=== PATIENT | female | born 1955 | race Caucasian/White ===

== ENCOUNTER 2016-10-01 12:47 | Emergency (ER) | payer OTHER ==
[~2016-10-01] VITALS: Ht 160 cm; Wt 56.8 kg
[2016-10-01] MEDS ORDERED: OXYB5 PO (12:58)
[2016-10-01] MEDS ORDERED: MUPIROCIN CALCIUM 2% 22 GM OINTMENT TP ONE (14:30)
[2016-10-01] MEDS ORDERED: PredniSONE 20 MG TABLET PO ONE (14:30)
[2016-10-01 15:40] VITALS: BP 122/78
== END 2016-10-01 15:49 | disposition home or self-care (01) ==
LOC: EMS 12:48
DX: L08.89 Other specified local infections of the skin and subcutaneous tissue (principal)
CPT/HCPCS: 99283; J7512

== ENCOUNTER 2017-07-18 13:10 | Emergency (ER) | payer OTHER ==
[~2017-07-18] VITALS: Ht 162.6 cm; Wt 72.7 kg
[~2017-07-18 13:10] MED LIST: OXYB5 PO
[2017-07-18 13:57] LABS: GLUCOSE,POINT OF CARE 75 MG/DL (70-110)
[2017-07-18 15:50] VITALS: BP 156/98
== END 2017-07-18 15:55 | disposition home or self-care (01) ==
LOC: EMS 13:11
DX: F10.129 Alcohol abuse with intoxication, unspecified (principal); F41.9 Anxiety disorder, unspecified; I10 Essential (primary) hypertension; E16.2 Hypoglycemia, unspecified
CPT/HCPCS: 36415; 82962; 99283; G0480

== ENCOUNTER 2020-11-17 12:18 | Emergency (ER) | payer OTHER ==
[~2020-11-17] VITALS: Ht 160 cm; Wt 59.1 kg
[2020-11-17] MEDS ORDERED: BUPIVACAINE HCL/PF 0.25% 10 ML VIAL ID ONE (13:00)
[2020-11-17] MEDS ORDERED: LIDOCAINE 1% 10 ML VIAL ID ONE (13:00)
[2020-11-17] MEDS ORDERED: IBUPROFEN 800 MG TABLET PO ONE (13:15)
[2020-11-17] MEDS ORDERED: PERTUSS(ACELL),DIPH,TET VAC/PF 0.5 ML SYRINGE IM. ONE (13:15)
[2020-11-17] MEDS ORDERED: CEPHALEXIN MONOHYDRATE 500 MG CAPSULE PO ONE (14:00)
[2020-11-17 14:06] VITALS: BP 144/83
[2020-11-17] MEDS ORDERED: POVIDONE-IODINE 10% 15 ML SOLUTION UD TP ONE (14:15)
== END 2020-11-17 14:18 | disposition home or self-care (01) ==
LOC: EMS 12:20
DX: S60.446A External constriction of right little finger, initial encounter (principal); L08.9 Local infection of the skin and subcutaneous tissue, unspecified; W49.01XA Hair causing external constriction, initial encounter; Y93.89 Activity, other specified; Y92.89 Other specified places as the place of occurrence of the external cause; Y99.8 Other external cause status
CPT/HCPCS: 64450; 90471; 90715; 99284; J3490 ×2

== ENCOUNTER 2024-09-28 12:30 | Emergency (ER) | payer OTHER ==
[~2024-09-28] VITALS: Ht 160 cm; Wt 75.0 kg
[~2024-09-28 12:30] MED LIST changes: -OXYB5 PO; +OXYB5TAB20 PO
[2024-09-28 12:48] VITALS: TEMP 98.2
[2024-09-28 16:55] LABS: HEMOGLOBIN 11.2 g/dL (12.0-16.0); LYMPHOCYTES # (AUTO) 1.1 K/uL (1.0-4.8); MEAN CORPUSCULAR HGB CONC 32.9 G/dL (31.0-37.0); MEAN CORPUSCULAR VOLUME 88 fL (80-100); MONOCYTES # (AUTO) 0.6 K/uL (0.1-1.0); MONOCYTES % (AUTO) 8.8 % (2.0-9.0); NEUTROPHILS # (AUTO) 4.5 K/uL (1.8-7.7); NEUTROPHILS % (AUTO) 71.2 % (40.0-70.0); PLATELET COUNT (AUTO) 332 K/uL (150-450); RED BLOOD CELL COUNT(AUTO) 3.85 MIL/uL (4.00-5.20); RED CELL DISTRIBUTION WIDTH 14.9 % (11.5-14.5); WHITE BLOOD COUNT (AUTO) 6.3 K/uL (4.5-11.0)
[2024-09-28 17:30] LABS: ANION GAP 5 mmol/L (8-16); CALCIUM, TOTAL 9.2 mg/dL (8.8-10.5); CARBON DIOXIDE 32 mmol/L (22-29); CHLORIDE 103 mmol/L (98-107); CREATININE 0.85 mg/dL (0.60-1.30); GLOMERULAR FILTR. RATE CALC > 60 mL/min (>60); GLUCOSE,RANDOM 119 mg/dL (70-110); POTASSIUM 3.9 mmol/L (3.5-5.1); SODIUM SERUM 140 mmol/L (136-145); UREA NITROGEN, BLOOD 11 mg/dL (7-18)
[2024-09-28 17:38] LABS: TROPONIN I-HIGH SENSITIVITY 4 ng/L (<51)
[2024-09-28] MEDS ORDERED: SULF-261 PO (19:39)
[2024-09-28] MEDS ORDERED: CEPH-558 PO (19:39)
[2024-09-28 20:45] VITALS: BP 144/62; PULSE 81; RESP 16; O2SAT 99
[2024-09-28] MEDS: KETOROLAC TROMETHAMINE 60 MG/2 ML VIAL IM ONE (21:05)
== END 2024-09-28 21:17 | disposition home or self-care (01) ==
LOC: EMS 12:33
DX: L03.115 Cellulitis of right lower limb (principal); L03.116 Cellulitis of left lower limb; R06.02 Shortness of breath
CPT/HCPCS: 99284; 80048; 83880; 84484; 85025; 36415; 93005; 96372; J1885